=== PATIENT | male | born 1965 | race Caucasian/White ===

== ENCOUNTER 2019-03-19 19:46 | Emergency (ER) | payer MEDICAID ==
[~2019-03-19] VITALS: Ht 182.9 cm; Wt 98.7 kg
[~2019-03-19 19:46] MED LIST: IBUP-1573 PO
[2019-03-19] MEDS ORDERED: erythromycin ophthalmic ointment 1gm tube RIGHTEYE ONE (20:10)
[2019-03-19] MEDS ORDERED: proparacaine 0.5% ophthalmic drops 15ml EACHEYE ONE (20:10)
[2019-03-19] MEDS ORDERED: acetaminophen 325mg tablet PO ONE (20:15)
[2019-03-19] MEDS ORDERED: ERYT1OIN6 EACHEYE (20:42)
[2019-03-19 20:58] VITALS: BP 130/90
== END 2019-03-19 21:00 | disposition home or self-care (01) ==
LOC: ER 19:46
DX: H10.31 Unspecified acute conjunctivitis, right eye (principal); M19.90 Unspecified osteoarthritis, unspecified site; Z60.2 Problems related to living alone; Z98.890 Other specified postprocedural states; Z88.0 Allergy status to penicillin; Z79.899 Other long term (current) drug therapy
CPT/HCPCS: 99283

== ENCOUNTER 2020-11-27 09:10 | Day surgery (SDC) | payer MEDICAID ==
[~2020-11-27] VITALS: Ht 182.9 cm; Wt 104.5 kg
[2020-11-27] MEDS ORDERED: CHOL100024 PO (09:43)
[2020-11-27] MEDS ORDERED: ACET-2971 PO (09:43)
[2020-11-27 11:02] VITALS: BP 145/101
[2020-11-27 12:00] VITALS: BP 145/101
[2020-11-27 12:12] VITALS: BP 141/94
[2020-11-27 12:15] VITALS: BP 142/98
[2020-11-27 12:30] VITALS: BP 129/90
== END 2020-11-27 12:40 | disposition home or self-care (01) ==
LOC: SSTAY O 09:10
PROVIDERS: ATTEND Radiology Vascular & Interventional Radiology
DX: K11.8 Other diseases of salivary glands (principal); G51.0 Bell's palsy; Z20.822 Contact with and (suspected) exposure to COVID-19; Z79.899 Other long term (current) drug therapy; Z98.890 Other specified postprocedural states; F17.210 Nicotine dependence, cigarettes, uncomplicated
CPT/HCPCS: 10005; 36415; U0003; 20206; 76942